=== PATIENT | male | born 1985 | race Caucasian/White ===

== ENCOUNTER 2016-11-24 16:30 | Emergency (ER) | payer BC ==
[2016-11-24 16:36] VITALS: BP 143/67; PULSE 98; RESP 20; TEMP 98.1
--- NOTE | 2016-11-24 17:12 | ED ---
Skin/Abscess/FB HPI - General Chief complaint: Skin/Abscess/Foreign Body Stated complaint: Bug Bite Time Seen by Provider: 11/24/16 16:45 Source: patient, RN notes reviewed Mode of arrival: ambulatory Limitations: no limitations - History of Present Illness Initial comments: Patient is a 31-year-old male presents to the emergency room for evaluation of skin lesions. Patient states that he was at a [facility] November 02 and was bit by multiple mosquitoes. Patient's is present with patient. Patient's states that she looked at patient's legs and noticed a lesion on his left and right leg with surrounding rings. Patient's states that she is worried it is Lyme disease. Patient states he never noticed those lesions until it was pointed out by his . Patient states the areas itch. Patient denies arthralgias, headache, dizziness, nausea, vomiting, chest pain, fevers, chills, back pain. Patient denies noticing any ticks attached to him. - Related Data Home Medications Medication Instructions Recorded Confirmed Citalopram Hydrobromide [CeleXA] 40 mg PO HS 11/24/16 11/24/16 Omeprazole 20 mg PO HS 11/24/16 11/24/16 Simvastatin 40 mg PO HS 11/24/16 11/24/16 Previous Rx's Medication Instructions Recorded Doxycycline [Vibramycin] 100 mg PO Q12HR 14 Days 11/24/16 Allergies Allergy/AdvReac Type Severity Reaction Status Date / Time ibuprofen [From Motrin] Allergy Anaphylaxis Verified 11/24/16 16:53 Review of Systems ROS Statement: Those systems with pertinent positive or pertinent negative responses have been documented in the HPI. ROS Other: All systems not noted in ROS Statement are negative. Past Medical History Past Medical History: GERD/Reflux, Hyperlipidemia History of Any Multi-Drug Resistant Organisms: None Reported Past Surgical History: Orthopedic Surgery, Tonsillectomy Past Psychological History: Depression Smoking Status: Never smoker Past Alcohol Use History: None Reported Past Drug Use History: None Reported General Exam - General Exam Comments Initial Comments: Sitting on exam chair, no acute distress. Limitations: no limitations General appearance: alert, in no apparent distress Head exam: Present: atraumatic, normocephalic, normal inspection Eye exam: Present: normal appearance ENT exam: Present: normal exam Neck exam: Present: normal inspection Respiratory exam: Present: normal lung sounds bilaterally. Absent: respiratory distress Cardiovascular Exam: Present: regular rate, normal rhythm, normal heart sounds Extremities exam: Present: normal inspection Back exam: Present: normal inspection Neurological exam: Present: alert, oriented X3, CN II-XII intact, normal gait Psychiatric exam: Present: normal affect, normal mood Skin exam: Present: other (Small pinpoint scabbed lesion over the left mid anterior lower leg with surrounding ring with central clearing. A second small pinpoint scabbed lesion over the right anterior mid villalba with central clearing and surrounding erythema.) Course Vital Signs 11/24/16 16:33 Temperature 98.1 F Pulse Rate 98 Respiratory 20 Rate Blood Pressure 143/67 O2 Sat by Pulse 99 Oximetry Medical Decision Making - Medical Decision Making Patient is a 31-year-old male presents to the emergency room for evaluation of skin lesions. Patient does have a erythema migrans lesion on right anterior villalba and left anterior villalba. Patient has no other associated symptoms. Patient will be started on doxycycline to cover for Lyme's disease. Patient advised to follow-up with either his primary care provider or senior financial analyst in 24-48 hours for reevaluation. Patient states he understands everything that was discussed with him. Return parameters discussed. Case discussed with Dr. Angela who also evaluated patient. Disposition Clinical Impression: Lyme disease, acute Disposition: HOME SELF-CARE Condition: Good Instructions: Lyme Disease (ED), Tick Bite (ED) Additional Instructions: Take antibiotics as directed. Please follow up with primary care provider or senior financial analyst for reevaluation in 24-48 hours. If any new symptom arises or symptoms worsen, return to ER as soon as possible. Prescriptions: Doxycycline [Vibramycin] 100 mg PO Q12HR 14 Days Referrals: [place] MD [Primary Care Provider] - 1-2 days Time of Disposition: 17:13
== END 2016-11-24 17:29 | disposition home or self-care (01) ==
LOC: EC 16:30
DX: A69.20 Lyme disease, unspecified (principal); F32.9 Major depressive disorder, single episode, unspecified; K21.9 Gastro-esophageal reflux disease without esophagitis; E78.5 Hyperlipidemia, unspecified; Z79.899 Other long term (current) drug therapy; Z88.6 Allergy status to analgesic agent
CPT/HCPCS: 99282

== ENCOUNTER → 2016-12-06 | Outpatient (CLI) | payer BC ==
[2016-12-06 11:03] LABS: CH 28.5; CHCM 34.9; HCT 41.5 % (39.0-53.0); HDW 2.76; HGB 15.1 gm/dL (13.0-17.5); MCH 29.8 pg (25.0-35.0); MCHC 36.3 g/dL (31.0-37.0); MCV 82.1 fL (80.0-100.0); Mean Platelet Volume 6.9; RBC 5.06 m/uL (4.30-5.90); WBC 7.5 k/uL (3.8-10.6)
[2016-12-06 11:30] LABS: ALT 84 U/L (21-72); AST 39 U/L (17-59); Alkaline Phosphatase 96 U/L (38-126); Anion Gap 11 mmol/L; Blood Urea Nitrogen 12 mg/dL (9-20); Calcium 9.7 mg/dL (8.4-10.2); Carbon Dioxide 27 mmol/L (22-30); Chloride 104 mmol/L (98-107); Cholesterol 191 mg/dL (<200); Glucose 90 mg/dL (74-99); HDL Cholesterol 44 mg/dL (40-60); Non-African American GFR(MDRD) >60 (>60 ml/min/1.73 sqM); Potassium 4.4 mmol/L (3.5-5.1); Sodium 142 mmol/L (137-145); Total Bilirubin 0.6 mg/dL (0.2-1.3); Total Protein 7.5 g/dL (6.3-8.2); Triglycerides 195 mg/dL (<150)
[2016-12-10 13:56] LABS: Lyme IgG/IgM 0.1 Index; Lyme IgG/IgM Interp NEGATIVE (NEGATIVE)
== END | disposition home or self-care (01) ==
LOC: LABWHC1 10:29
PROVIDERS: ATTEND Internal Medicine
DX: E78.5 Hyperlipidemia, unspecified (principal); R21 Rash and other nonspecific skin eruption
CPT/HCPCS: 36415; 80053; 80061; 84443; 85027; 86618

== ENCOUNTER → 2017-11-15 | Outpatient (CLI) | payer BC ==
[2017-11-15 09:30] LABS: HCT 43.1 % (39.0-53.0); HGB 14.4 gm/dL (13.0-17.5); MCH 28.3 pg (25.0-35.0); MCHC 33.4 g/dL (31.0-37.0); MCV 84.7 fL (80.0-100.0); Mean Platelet Volume 6.5; Platelet Count 275 k/uL (150-450); RBC 5.09 m/uL (4.30-5.90); WBC 8.3 k/uL (3.8-10.6)
[2017-11-15 09:43] LABS: ALT 38 U/L (21-72); AST 24 U/L (17-59); Albumin 4.5 g/dL (3.5-5.0); Alkaline Phosphatase 89 U/L (38-126); Anion Gap 12 mmol/L; Blood Urea Nitrogen 17 mg/dL (9-20); Calcium 9.2 mg/dL (8.4-10.2); Carbon Dioxide 26 mmol/L (22-30); Chloride 103 mmol/L (98-107); Cholesterol 238 mg/dL (<200); Glucose 101 mg/dL (74-99); HDL Cholesterol 50 mg/dL (40-60); LDL Cholesterol,Calculated 163 mg/dL (0-99); Potassium 4.4 mmol/L (3.5-5.1); Sodium 141 mmol/L (137-145); Total Bilirubin 0.3 mg/dL (0.2-1.3); Triglycerides 127 mg/dL (<150)
== END | disposition home or self-care (01) ==
LOC: LABWHC1 08:58 → EDSTATUS 10:33 → LABWHC1 10:36 → EDSTATUS 10:37
PROVIDERS: ATTEND Internal Medicine
DX: E78.2 Mixed hyperlipidemia (principal); K21.9 Gastro-esophageal reflux disease without esophagitis; F33.9 Major depressive disorder, recurrent, unspecified
CPT/HCPCS: 36415; 80053; 80061; 84443; 85027